=== PATIENT | female | born 1965 ===

== ENCOUNTER 2017-10-20 15:46 | Inpatient (IN) | payer OTHER ==
[2017-10-20] MEDS ORDERED: Sodium Chloride 0.9% 1,000 ML IV ONE (17:07)
[2017-10-20 18:23] LABS: BASO % 0.4 % (0.0-2.0); EOS % 0.3 % (0.0-4.0); HEMOGLOBIN 13.6 g/dL (11.0-16.0); LYMPH % 19.9 % (20.0-40.0); MEAN CELL VOLUME 80.4 fL (81.0-99.0); MEAN CORPUSCULAR HEMOGLOBIN 26.5 pg (27.0-31.0); MEAN CORPUSCULAR HGB CONC 32.9 g/dL (33.0-37.0); MEAN PLATELET VOLUME 8.8 fL (7.2-11.7); MONO % 18.9 % (0.0-10.0); NEUT # 3.1 K/uL (1.8-7.0); NEUT % 60.5 % (50.0-75.0); NRBC % 0.1 % (0.0-2.0); RBC 5.13 Mil/uL (3.80-5.20); RED CELL DISTRIBUTION WIDTH 13.6 % (11.5-14.5); WHITE BLOOD COUNT 5.2 K/uL (4.8-10.8)
[2017-10-20 18:33] LABS: D DIMER < 200 ng/mlDDU (0-243); INR 2.7; PARTIAL THROMBOPLASTIN TIME 45 SECONDS (21-34); PROTHROMBIN TIME 31.7 SECONDS (9.7-12.2)
[2017-10-20 18:40] LABS: ALB/GLOB RATIO 1.2 (1.0-2.1); ALBUMIN 3.9 g/dL (3.5-5.0); ALT/SGPT 35 U/L (9-52); AST/SGOT 32 U/L (14-36); BLOOD UREA NITROGEN 7 mg/dL (7-17); CALCIUM 8.7 mg/dl (8.6-10.4); GFR AFRICAN-AMERICAN > 60; GFR NON-AFRICAN AMERICAN > 60
--- NOTE | 2017-10-20 18:49 | C.PDOC ---
History Of Present Illness Patient sent by Dr. Motnano for admission, patient presents with sore throat, malaise, and congestion. Patient has had positive sick contacts and has a Hx of HIV; patient has a low CD4 count which is "normal" for her as per Dr. Montano. Denies chest pain, SOB, nausea, or vomiting. Time Seen by Provider: 10/20/17 16:49 Chief Complaint (Nursing): Lower Extremity Problem/Injury History Per: Patient History/Exam Limitations: no limitations Onset/Duration Of Symptoms: Hrs Current Symptoms Are (Timing): Still Present Recent travel outside of the [place]: No Past Medical History Reviewed: Historical Data, Nursing Documentation, Vital Signs Vital Signs: Last Vital Signs Temp 99.7 F H 10/20/17 20:16 Pulse 82 10/20/17 20:16 Resp 18 10/20/17 20:16 BP 104/65 10/20/17 20:16 Pulse Ox 99 10/20/17 20:16 - Medical History PMH: HIV Family History: States: Unknown Family Hx - Social History Hx Alcohol Use: No Hx Substance Use: No - Immunization History Hx Tetanus Toxoid Vaccination: No Hx Influenza Vaccination: Yes Hx Pneumococcal Vaccination: Yes Review Of Systems Constitutional: Positive for: Malaise. Negative for: Fever, Chills ENT: Positive for: Nose Congestion, Throat Pain Cardiovascular: Negative for: Chest Pain Respiratory: Negative for: Shortness of Breath Gastrointestinal: Negative for: Nausea, Vomiting, Abdominal Pain Physical Exam - Physical Exam Appears: Non-toxic, No Acute Distress Skin: Normal Color, Warm, Dry Head: Atraumatic, Normacephalic Eye(s): bilateral: Normal Inspection Ear(s): Bilateral: Normal Nose: Normal Oral Mucosa: Moist Throat: Normal, No Erythema, No Exudate Neck: Normal, Supple Chest: Symmetrical Cardiovascular: Rhythm Regular Respiratory: Normal Breath Sounds, No Rales, No Rhonchi, No Wheezing Gastrointestinal/Abdominal: Soft, No Tenderness Neurological/Psych: Oriented x3, Normal Speech ED Course And Treatment - Laboratory Results Result Diagrams: 10/20/17 18:18 10/20/17 18:18 Lab Interpretation: Normal (d-dimer neg, INR 2.7 is THERAPUTIC on her Coumadin) ECG: Interpreted By Me ECG Rhythm: Sinus Rhythm ECG Interpretation: Normal Rate From EC O2 Sat by Pulse Oximetry: 97 - Radiology CXR: Interpreted by Me CXR Interpretation: Yes: No Acute Disease Progress Note: ice pack to L piriformis area for L sciatica, toradol IV. Flu swab was positive, started on tamiflu Reevaluation Time: 19:05 Reassessment Condition: Improved - Physician Consult Information Outcome Of Conversation: 1899: d/w Dr. Montano, findings reviewed. Asks pt admitted to Dr. Martinez and Dr Montano will Consult. 1914: d/w Dr. Martinez , ok to admit. Medical Decision Making Medical Decision Making: teraputic INR 2.7 on Coumadin for h/o PE with unknown DVT. legs normal appearance, L piriformis Syndrome worse with heat therapies, no spinal pains. d-dimer neg. LOW susp of recurrent PE No heparin given as INR 2.7 is theraputic. Viral syndrome Flu neg. adm per Dr. Montano who will eval in AM Disposition Doctor Will See Patient In The: Hospital Counseled Patient/Family Regarding: Studies Performed, Diagnosis - Disposition Disposition: HOSPITALIZED Disposition Time: 18:49 Condition: GOOD - Clinical Impression Clinical Impression: Sciatica of left side, Viral syndrome - Scribe Statement The provider has reviewed the documentation as recorded by the Scribe Amish Galvan All medical record entries made by the Scribe were at my direction and personally dictated by me. I have reviewed the chart and agree that the record accurately reflects my personal performance of the history, physical exam, medical decision making, and the department course for this patient. I have also personally directed, reviewed, and agree with the discharge instructions and disposition.
[2017-10-20] MEDS ORDERED: guaiFENesin 100 mg/5 ml Syrup UD PO STA (18:51)
[2017-10-20] MEDS ORDERED: guaiFENesin DM 200 mg-20 mg/10 ml UD ONE (19:35)
[2017-10-20] MEDS: Multivitamin (MVI) 10 ML in Dextrose 5%/0.45% NS 1,000 ML IV SCH (20:50)
--- NOTE | 2017-10-20 20:55 | CP.PCM.CON ---
History of Present Illness - History of Present Illness History of Present Illness: INFECTIOUS DISEASE CONSULTATION SRINATH FLOYD MD, FACP 10/20/2017 CHART REVIEWED PT EXAMINED CASE DISCUSSED 52 YR OLD FEMALE PRESENTS WITH ELEVATED TEMPERATURES 101.7, COUGH, CHILLS, DEBILITATION AND UNBEARABLE PAIN LEFT LEG PAIN X DAYS. PT UNABLE TO TAKE CARE OF HERSELF, POOR ORAL INTAKE AND POOR AMBULATION. PMHX: HIV/AIDS; CD4 708(38%0, VL UNDECTABLE ON GENVOYA DVT/PE INR 2.9 BILATERAL LEG NEUROPATHY - PLEASE NO DECADRON DYSMORPHIA/LIPODYSTROPHY PROGRESSIVE, FAILED EGRIFTA X 1 YEAR, CIRCA [id number] PULMONARY HTN VS ELEVATED TEMP 101.7 DEBILITATED, DEHYDRATED CLINICALLY, UNABLE TO CARE FOR HERSELF DRY MOUTH SUPPLE NECK CHEST DECREASED BREATH SOUNDS COR NOTED ABD SOFT BACK PAIN WITH SEVERE LEFT LOWER LEG PAIN NEURO ABOVE LABS PENDING CXR IV FLUIDS TAMIFLU ROCEPHIN SOLUMEDROL 40MG IVPB Q 12 X 2 DOSES R/O ACUTE FLU R/O BRONCHOPNEUMONIA PE ON TREATMENT DEBILITATION LEFT LOWER LEG PAIN, CANT WALK WELL SEE NOTES DISCUSSED WITH ER GROUP, DR TOLEDO PT AWARE, FAMILY AWARE MUCH APPRECIATE 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 IN EXPEDIATING HER CARE AND TREATMENT, Review of Systems - Review of Systems Systems not reviewed;Unavailable: Respiratory Distress - Constitutional Constitutional: Anorexia, Chills, Fatigue, Fever, Malaise - EENT Eyes: As Per HPI Ears: As Per HPI Nose/Mouth/Throat: Sinus Pressure, Dry Mouth - Cardiovascular Cardiovascular: Diaphoresis, Edema - Respiratory Respiratory: Cough, Dyspnea on Exertion, Chest Congestion - Gastrointestinal Gastrointestinal: Bloating, Cramping - Musculoskeletal Musculoskeletal: Atrophy, Back Pain, Joint Swelling, Muscle Weakness, Numbness, Radiating Pain into Limb - Integumentary Integumentary: absent: As Per HPI, Acne, Alopecia, Bleeding Lesions, Change in Hair, Change in Nails, Change in Pigmentation, Changing Lesions, Dry Skin, Erythema, Furuncle, Hirsutism, Lesions, New Lesions, Non-Healing Lesions, Photosensitivity, Pruritus, Rash, Skin Pain, Skin Ulcer, Sores, Striae, Swelling , Unusual Bruising, Wounds, Jaundice, Other - Neurological Neurological: Numbness, Lack of Coordination, Radicular Pain, Weakness - Psychiatric Psychiatric: absent: As Per HPI, Abnormal Sleep Pattern, Anhedonia, Anxiety, Auditory Hallucinations, Behavioral Changes, Change in Appetite, Change in Libido, Confusion, Depression, Difficulty Concentrating, Hallucinations, Homicidal Ideation, Hopelessness, Irritability, Memory Loss, Mood Swings, Panic Attacks, Paranoia, Suicidal Ideation, Visual Hallucinations, Tactile Hallucinations, Other Past Patient History - Tetanus Immunizations Tetanus Immunization: Up to Date - Past Medical History & Family History Past Medical History?: Yes - Past Social History Smoking Status: Never Smoked Chewing Tobacco Use: No Cigar Use: No Alcohol: Occasional Drugs: Denies Home Situation {Lives}: With Family Domestic Violence: Negative - CARDIAC Hx Cardiac Disorders: Yes Hx Hypertension: Yes - PULMONARY Hx Respiratory Disorders: Yes Hx Respiratory Tract Infection: Yes Other/Comment: PULMONARY HTN - NEUROLOGICAL Hx Neurological Disorder: Yes (BACK PAIN) - HEENT Hx HEENT Problems: No - RENAL Hx Chronic Kidney Disease: No - ENDOCRINE/METABOLIC Hx Endocrine Disorders: No - HEMATOLOGICAL/ONCOLOGICAL Hx Blood Disorders: Yes Hx AIDS: Yes Hx Human Immunodeficiency Virus (HIV): Yes Other/Comment: PULMONARY EMBOLI - INTEGUMENTARY Hx Dermatological Problems: No - MUSCULOSKELETAL/RHEUMATOLOGICAL Hx Arthritis: Yes Hx Herniated Disk: Yes - GASTROINTESTINAL Hx Gastrointestinal Disorders: Yes - PSYCHIATRIC Hx Psychophysiologic Disorder: No Hx Substance Use: No - SURGICAL HISTORY Other/Comment: ovarian cyst removed - ANESTHESIA Hx Anesthesia: No Hx Anesthesia Reactions: No Meds Allergies/Adverse Reactions: Allergies Allergy/AdvReac Type Severity Reaction Status Date / Time No Known Allergies Allergy Unverified 10/20/17 15:54 - Medications Medications: Current Medications Home Med (Elviteg/Cob/Emtri/Tenof Alafen [Genvoya Tablet]) 1 tab PO DAILY [facility] Multivitamins/Vitamin C 10 ml/ (Dextrose/Sodium Chloride) 1,010 mls @ 125 mls/ hr IV .Q8H5M [facility] Ceftriaxone Sodium 1 gm/ (Sodium Chloride) 100 mls @ 100 mls/hr IVPB DAILY [facility] Oseltamivir Phosphate (Tamiflu Cap) 75 mg PO BID [facility] Stop: 10/25/17 19:33 Warfarin Sodium (Coumadin) 6 mg PO 1800 [facility] Stop: 10/21/17 18:01 Warfarin Sodium (Coumadin) 6 mg PO HS [facility] Last Admin: 10/20/17 19:52 Dose: Not Given Physical Exam - Constitutional Appears: In Acute Distress - Head Exam Head Exam: NORMAL INSPECTION - Eye Exam Eye Exam: Normal appearance - ENT Exam ENT Exam: Mucous Membranes Dry - Neck Exam Neck exam: Positive for: Normal Inspection - Respiratory Exam Respiratory Exam: Decreased Breath Sounds, Wheezes - Cardiovascular Exam Cardiovascular Exam: Tachycardia - GI/Abdominal Exam GI & Abdominal Exam: Normal Bowel Sounds, Soft. absent: Rigid - Rectal Exam Rectal Exam: Deferred - Back Exam Back exam: muscle spasm, tenderness. absent: rash noted - Neurological Exam Neurological exam: Alert, Oriented x3 - Psychiatric Exam Psychiatric exam: Anxious - Skin Skin Exam: Dry, Intact, Normal Color, Warm Results - Vital Signs Recent Vital Signs: Last Vital Signs Temp 99.7 F H 10/20/17 20:16 Pulse 82 10/20/17 20:16 Resp 18 10/20/17 20:16 BP 104/65 10/20/17 20:16 Pulse Ox 99 10/20/17 20:16 - Labs Result Diagrams: 10/20/17 18:18 10/20/17 18:18 Labs: Laboratory Results - last 24 hr 10/20/17 10/20/17 10/20/17 18:18 18:18 18:18 WBC 5.2 RBC 5.13 Hgb 13.6 Hct 41.3 MCV 80.4 L MCH 26.5 L MCHC 32.9 L RDW 13.6 Plt Count 207 MPV 8.8 Neut % (Auto) 60.5 Lymph % (Auto) 19.9 L [place] % (Auto) 18.9 H Eos % (Auto) 0.3 Baso % (Auto) 0.4 Neut # 3.1 Lymph # 1.0 [place] # 1.0 H Eos # 0.0 Baso # 0.0 PT 31.7 H* INR 2.7 APTT 45 H D-Dimer, Quantitative < 200 Sodium 131 L Potassium 3.7 Chloride 98 Carbon Dioxide 25 Anion Gap 12 BUN 7 Creatinine 0.7 Est GFR ( Amer) > 60 Est GFR (Non-Af Amer) > 60 Random Glucose 102 Calcium 8.7 Total Bilirubin 0.3 AST 32 ALT 35 Alkaline Phosphatase 80 Troponin I < 0.0120 Total Protein 7.2 Albumin 3.9 Globulin 3.3 Albumin/Globulin Ratio 1.2 Influenza Typ A,B (EIA) 10/20/17 19:13 WBC RBC Hgb Hct MCV MCH MCHC RDW Plt Count MPV Neut % (Auto) Lymph % (Auto) [place] % (Auto) Eos % (Auto) Baso % (Auto) Neut # Lymph # [place] # Eos # Baso # PT INR APTT D-Dimer, Quantitative Sodium Potassium Chloride Carbon Dioxide Anion Gap BUN Creatinine Est GFR ( Amer) Est GFR (Non-Af Amer) Random Glucose Calcium Total Bilirubin AST ALT Alkaline Phosphatase Troponin I Total Protein Albumin Globulin Albumin/Globulin Ratio Influenza Typ A,B (EIA) Pos for influenza a H Assessment & Plan (1) Acute pharyngitis with influenza Status: Acute (2) Bronchopneumonia Status: Suspected (3) Fever and chills Status: Acute (4) Pulmonary emboli Status: Chronic (5) HIV (human immunodeficiency virus infection) Status: Chronic (6) Neuropathy Status: Chronic Priority: High Comment: LEFT LEG PAIN AND WEAKNESS (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
[2017-10-20 21:15] LABS: SQUAMOUS EPITHIAL 1 /hpf (0-5); URINE BACTERIA RARE (<OCC); URINE BILIRUBIN NEGATIVE (NEGATIVE); URINE BLOOD NEGATIVE (NEGATIVE); URINE CLARITY Clear (Clear); URINE COLOR Yellow (YELLOW); URINE GLUCOSE (UA) NORMAL (Normal); URINE LEUKOCYTE ESTERASE NEG Leu/uL (Negative); URINE NITRATE NEGATIVE (NEGATIVE); URINE PROTEIN NEGATIVE (NEGATIVE); URINE UROBILINOGEN NORMAL mg/dL (0.2-1.0)
[2017-10-20] MEDS ORDERED: Iodixanol 320 MG/ML 100 ML BOTTLE IV ONE (21:46)
[2017-10-20] MEDS ORDERED: MethylPREDNISolone 40 mg Vial ONE (22:24)
[2017-10-20] MEDS: MethylPREDNISolone 40 mg Vial IV SCH (22:26)
--- NOTE | 2017-10-20 23:43 | CT ---
EXAM: CT Angiography Chest With Intravenous Contrast EXAM DATE/TIME: 10/20/2017 9:15 PM CLINICAL HISTORY: 52 years old, female; Signs and symptoms; Shortness of breath; Patient HX: H/o pe; Additional info: R/O pulm emboli TECHNIQUE: Axial computed tomographic angiography images of the chest with intravenous contrast using pulmonary embolism protocol. All CT scans at this facility use one or more dose reduction techniques, viz.: automated exposure control; ma/kV adjustment per patient size (including targeted exams where dose is matched to indication; i.e. head); or iterative reconstruction technique. MIP reconstructed images were created and reviewed. Coronal and sagittal reformatted images were created and reviewed. CONTRAST: 100 mL of visipaque 320 administered intravenously. COMPARISON: There are no prior studies for comparison. FINDINGS: Heart, aorta and Pulmonary arteries: Heart size is normal.There is fluid in pericardial recesses.There is no aneurysm or dissection. There is perfusion of the 3 arch vessels. Vascular calcificationThere are no pulmonary emboli. Lungs and pleural spaces: Trachea and main bronchi are patent.There is no pneumothorax. There is atelectasis and scarring in the lingula and right middle lobe. There is dependent atelectasis at the lung bases. There is minimal scarring at the lung bases. There is a 2.8 mm right lower lobe nodule. There is no focal consolidation. There are no effusions. Thyroid: Thyroid is only partially imaged. Bones/joints: There are degenerative changes in the osseus structures. Soft tissues: unremarkable Mediastinum:: There is mediastinal and hilar adenopathy. There are enlarged nodes in the anterior and middle mediastinum. There is subcarinal adenopathy. There is a 1.9 x 1 7 precarinal node, image 45 series 3. There is a 1.8 x 1.4 cm subcarinal node, image 56 series 3 Upper abdomen: There are no acute abnormalities in the visualized portion of the abdomen. IMPRESSION: No aneurysm, dissection or pulmonary embolus; mediastinal and hilar adenopathy, infectious/inflammatory versus neoplastic; indeterminate 2.8 mm right lower lobe nodule For low-risk patients, no follow-up is necessary. For high-risk patients (smoking history or other known risk factors) an optional chest CT at 12 months could be performed.
[2017-10-20] MEDS ORDERED: Tramadol 25 mg PO STA (23:54)
[2017-10-21] MEDS ORDERED: Tramadol 25 mg PO ONE (04:00)
[2017-10-21] MEDS: Multivitamin (MVI) 10 ML in Dextrose 5%/0.45% NS 1,000 ML IV SCH (04:31)
--- NOTE | 2017-10-21 08:52 | RAD ---
HISTORY: SOB COMPARISON: No prior. TECHNIQUE: Chest PA and lateral FINDINGS: LUNGS: No active pulmonary disease. PLEURA: No significant pleural effusion identified. No pneumothorax apparent. CARDIOVASCULAR: Normal. OSSEOUS STRUCTURES: No significant abnormalities. VISUALIZED UPPER ABDOMEN: Normal. OTHER FINDINGS: None. IMPRESSION: No active disease.
[2017-10-21] MEDS: MethylPREDNISolone 40 mg Vial IV SCH ×2 (10:30→21:31)
[2017-10-21] MEDS ORDERED: Oxycodone/Acetaminophen 5/325 mg Tab PO PRN (11:16)
--- NOTE | 2017-10-21 13:56 | VASCLAB ---
PROCEDURE: Lower Extremity Venous Duplex Exam. HISTORY: pain lower ext PRIORS: None. TECHNIQUE: Bilateral common femoral, femoral, popliteal and posterior tibial, peroneal and great saphenous veins were evaluated. Flow was assessed with color Doppler, compressibility, assessment of phasic flow and augmentation response. Report prepared by Amish Camejo, RONALD, RVT FINDINGS: RIGHT: 1. Common Femoral Vein: 1.1. Compressibility - Fully compressible: Thrombus - None : Flow - Phasic: Augmentation -Normal: Reflux - None. 2. Femoral Vein: 2.1. Compressibility - Fully compressible: Thrombus - None : Flow - Phasic: Augmentation -Normal: Reflux - None. 3. Popliteal Vein: 3.1. Compressibility - Fully compressible: Thrombus - None : Flow - Phasic: Augmentation -Normal: Reflux - None. 4. Posterior Tibial Vein: 4.1. Compressibility - Fully compressible: Thrombus - None: Flow - Phasic: Augmentation -Normal: Reflux - None. 5. Peroneal Vein: 5.1. Compressibility - Fully compressible: Thrombus - None: Flow - Phasic: Augmentation -Normal: Reflux - None. 6. Great Saphenous Vein: 6.1. Compressibility - Fully compressible: Thrombus - None: Flow - Phasic: Augmentation - Normal: Reflux - None. LEFT: 1. Common Femoral Vein: 1.1. Compressibility - Fully compressible: Thrombus - None: Flow - Phasic: Augmentation -Normal: Reflux - None. 2. Femoral Vein: 2.1. Compressibility - Fully compressible: Thrombus - None: Flow - Phasic: Augmentation -Normal: Reflux - None. 3. Popliteal Vein: 3.1. Compressibility - Fully compressible: Thrombus - None : Flow - Phasic: Augmentation -Normal: Reflux - None. 4. Posterior Tibial Vein: 4.1. Compressibility - Fully compressible: Thrombus - None: Flow - Phasic: Augmentation -Normal: Reflux - None. 5. Peroneal Vein: 5.1. Compressibility - Fully compressible: Thrombus - None: Flow - Phasic: Augmentation -Normal: Reflux - None. 6. Great Saphenous Vein: 6.1. Compressibility - Fully compressible: Thrombus - None: Flow - Phasic: Augmentation - Normal: Reflux - None. OTHER FINDINGS: Right: None significant. Left: None significant. IMPRESSION: Right: No evidence of deep or superficial vein thrombosis of the right lower extremity. Normal valve function noted of the right side. Left: No evidence of deep or superficial vein thrombosis of the left lower extremity. Normal valve function noted of the left side.
--- NOTE | 2017-10-21 16:29 | CARD ---
APPROVED REPORT EKG Measurement Heart [id number] <Conclusion> Normal sinus rhythm Normal ECG
[2017-10-21] MEDS ORDERED: GENVOYA PO SCH ×2 (18:00→19:45)
--- NOTE | 2017-10-21 18:17 | CP.PCM.CON ---
History of Present Illness - History of Present Illness History of Present Illness: 52 yo woman known to me from the office, [place] [facility] [place] she presented with SOB and was found to have an acute subsegmental PE and was started on Coumadin. The patient is now admitted with fever, generalized weakness, myalgias, testing for lower extremity DVT is negative, testing for influenza A is positive. As per medical records the patient received flu vaccine in 06/2017. Past Patient History - Tetanus Immunizations Tetanus Immunization: Up to Date - Past Medical History & Family History Past Medical History?: Yes - Past Social History Smoking Status: Never Smoked - CARDIAC Hx Cardiac Disorders: Yes Hx Hypertension: Yes - PULMONARY Hx Respiratory Disorders: Yes Hx Respiratory Tract Infection: Yes Other/Comment: PULMONARY HTN - NEUROLOGICAL Hx Neurological Disorder: Yes (BACK PAIN) - HEENT Hx HEENT Problems: No - RENAL Hx Chronic Kidney Disease: No - ENDOCRINE/METABOLIC Hx Endocrine Disorders: No - HEMATOLOGICAL/ONCOLOGICAL Hx Human Immunodeficiency Virus (HIV): Yes - INTEGUMENTARY Hx Dermatological Problems: No - MUSCULOSKELETAL/RHEUMATOLOGICAL Hx Musculoskeletal Disorders: Yes Hx Arthritis: Yes Hx Falls: No Hx Herniated Disk: Yes - GASTROINTESTINAL Hx Gastrointestinal Disorders: Yes - GENITOURINARY/GYNECOLOGICAL Hx Genitourinary Disorders: No - PSYCHIATRIC Hx Substance Use: No - SURGICAL HISTORY Hx Surgeries: Yes Other/Comment: ovarian cyst removed - ANESTHESIA Hx Anesthesia: Yes Hx Anesthesia Reactions: No Meds Allergies/Adverse Reactions: Allergies Allergy/AdvReac Type Severity Reaction Status Date / Time No Known Allergies Allergy Unverified 10/20/17 15:54 - Medications Medications: Current Medications Home Med (Patient's Own Medication) 1 tab PO DAILY [facility] Ceftriaxone Sodium 1 gm/ (Sodium Chloride) 100 mls @ 100 mls/hr IVPB DAILY [facility] Last Admin: 10/21/17 10:31 Dose: 100 mls/hr Multivitamins/Vitamin C 10 ml/ (Dextrose/Sodium Chloride) 1,010 mls @ 125 mls/ hr IV DAILY [facility] Methylprednisolone (Solu-Medrol) 40 mg IV Q12 [facility] Stop: 10/21/17 22:00 Last Admin: 10/21/17 10:30 Dose: 40 mg Oseltamivir Phosphate (Tamiflu Cap) 75 mg PO BID [facility] Stop: 10/25/17 21:46 Last Admin: 10/21/17 10:31 Dose: 75 mg Oxycodone/Acetaminophen (Percocet 5/325 Mg Tab) 1 tab PO Q6H PRN PRN Reason: Back Pain Stop: 10/24/17 11:17 Last Admin: 10/21/17 11:37 Dose: 1 tab Warfarin Sodium (Coumadin) 5 mg PO 1800 [facility] Stop: 10/21/17 18:01 Results - Vital Signs Recent Vital Signs: Last Vital Signs Temp 97.7 F 10/21/17 16:27 Pulse 63 10/21/17 16:27 Resp 20 10/21/17 16:27 BP 105/68 10/21/17 16:27 Pulse Ox 98 10/21/17 16:27 - Labs Result Diagrams: 10/20/17 18:18 10/20/17 18:18 Labs: Laboratory Results - last 24 hr 10/20/17 10/20/17 10/20/17 18:18 18:18 18:18 WBC 5.2 RBC 5.13 Hgb 13.6 Hct 41.3 MCV 80.4 L MCH 26.5 L MCHC 32.9 L RDW 13.6 Plt Count 207 MPV 8.8 Neut % (Auto) 60.5 Lymph % (Auto) 19.9 L [place] % (Auto) 18.9 H Eos % (Auto) 0.3 Baso % (Auto) 0.4 Neut # 3.1 Lymph # 1.0 [place] # 1.0 H Eos # 0.0 Baso # 0.0 PT 31.7 H* INR 2.7 APTT 45 H D-Dimer, Quantitative < 200 Sodium 131 L Potassium 3.7 Chloride 98 Carbon Dioxide 25 Anion Gap 12 BUN 7 Creatinine 0.7 Est GFR ( Amer) > 60 Est GFR (Non-Af Amer) > 60 Random Glucose 102 Calcium 8.7 Total Bilirubin 0.3 AST 32 ALT 35 Alkaline Phosphatase 80 Troponin I < 0.0120 Total Protein 7.2 Albumin 3.9 Globulin 3.3 Albumin/Globulin Ratio 1.2 Urine Color Urine Clarity Urine pH Ur Specific [place] Urine Protein Urine Glucose (UA) Urine Ketones Urine Blood Urine Nitrate Urine Bilirubin Urine Urobilinogen Ur Leukocyte Esterase Urine WBC (Auto) Urine RBC (Auto) Ur Squamous Epith Cells Urine Bacteria Influenza Typ A,B (EIA) 10/20/17 10/20/17 19:13 21:03 WBC RBC Hgb Hct MCV MCH MCHC RDW Plt Count MPV Neut % (Auto) Lymph % (Auto) [place] % (Auto) Eos % (Auto) Baso % (Auto) Neut # Lymph # [place] # Eos # Baso # PT INR APTT D-Dimer, Quantitative Sodium Potassium Chloride Carbon Dioxide Anion Gap BUN Creatinine Est GFR ( Amer) Est GFR (Non-Af Amer) Random Glucose Calcium Total Bilirubin AST ALT Alkaline Phosphatase Troponin I Total Protein Albumin Globulin Albumin/Globulin Ratio Urine Color Yellow Urine Clarity Clear Urine pH 6.0 Ur Specific [place] 1.011 Urine Protein Negative Urine Glucose (UA) Normal Urine Ketones Trace Urine Blood Negative Urine Nitrate Negative Urine Bilirubin Negative Urine Urobilinogen Normal Ur Leukocyte Esterase Neg Urine WBC (Auto) < 1 Urine RBC (Auto) 3 Ur Squamous Epith Cells 1 Urine Bacteria Rare Influenza Typ A,B (EIA) Pos for influenza a H Assessment & Plan (1) Pulmonary emboli Assessment and Plan: 52 yo woman with history of pulmonary embolism, work up then did not reveal any risk factor on hypercoagulable work up, CAT scan chest now showing enlarged nodes, ?reactive/inflammatory versus malignant Will order scan of abdomen and pelvis, LDH. If above normal, will get PET scan after resolution of "viral " symptoms, as outpatient Status: Chronic
[2017-10-21 20:18] LABS: INR 2.6
[2017-10-21 21:06] LABS: PROTHROMBIN TIME 30.4 SECONDS (9.7-12.2)
[2017-10-21] MEDS ORDERED: Aluminum Hydroxide/Magnesium Hydroxide Susp (30 mL) PO ONE (22:42)
--- NOTE | 2017-10-21 23:48 | CP.PCM.HP ---
History of Present Illness - History of Present Illness History of Present Illness: Chief complaint: Cough and body pain History of present illness: 52-year-old female with a history of HIV, AIDS, normal CD4 count, history of recent DVT, pulmonary embolism, on Coumadin. Also patient has a bilateral neuropathy and lipodystrophy. Patient is being followed up by a infectious disease specialist for HIV. Patient came to the emergency room with a high fever, cough, chills, and also progressively worsening pain. She was also having increasing pain over the left leg, and also in the lower back, especially on the left side, unable to move, social to some weakness. She was also complaining of headache, muscle pain. Nausea noted, but no vomiting. Denies any diarrhea. No skin rash noted. Past medical history: HIV, back pain, probably embolism, history of DVT. 3 months ago while she was trying to help her mother, and they're trying to lift her up, she felt suddenly pain over the left hip, and also in the left thigh region, since then she was not able to walk better, and worsening pain noted. She was seen by orthopedic surgeon, and also had injection Decadron, and following that she had a complication with allergic reaction. Patient has a significant allergic to certain medications including Decadron. Past surgical history: Nonsmoker nonalcoholic But has a history of pulmonary hypertension. Review of system: Currently mild headache noted. Cough and wheezing noted, mucus percussion percent, body pain present, but today is better than yesterday. No vomiting nausea. The leg pain is still persistently noted. On examination: Vital signs are stable, elevated temperature. Irregular heart sound, minimal expiratory wheezing, regular heart sound, abdomen soft, nontender, extremities no pedal edema. Left leg the patient has some weakness in the extensors of the left foot, and also straight leg raising test is positive. Labs reviewed Influenza is positive. Chest x-ray nonspecific. Patient seen by infectious diseases, medication ordered including Tamiflu. Assessment and recommendation: 52-year-old female with a history of pulmonary hypertension, HIV, DVT primary embolism, on Coumadin. On antiretroviral treatment. Normal CD4 count. Patient admitted with acute febrile illness, likely influenza, and associated dehydration. Patient is currently receiving IV fluid, Tamiflu, antibiotic. Follow-up the study for the DVT on the left leg. CT scan of the chest is being ordered. DVT prophylaxis. Will follow the patient. Present on Admission - Present on Admission Any Indicators Present on Admission: No History of DVT/PE: No History of Uncontrolled Diabetes: No Urinary Catheter: No Decubitus Ulcer Present: No Past Patient History - Tetanus Immunizations Tetanus Immunization: Up to Date - Past Medical History & Family History Past Medical History?: Yes - Past Social History Smoking Status: Never Smoked - CARDIAC Hx Cardiac Disorders: Yes Hx Hypertension: Yes - PULMONARY Hx Respiratory Disorders: Yes Hx Respiratory Tract Infection: Yes Other/Comment: PULMONARY HTN - NEUROLOGICAL Hx Neurological Disorder: Yes (BACK PAIN) - HEENT Hx HEENT Problems: No - RENAL Hx Chronic Kidney Disease: No - ENDOCRINE/METABOLIC Hx Endocrine Disorders: No - HEMATOLOGICAL/ONCOLOGICAL Hx Human Immunodeficiency Virus (HIV): Yes - INTEGUMENTARY Hx Dermatological Problems: No - MUSCULOSKELETAL/RHEUMATOLOGICAL Hx Arthritis: Yes - GASTROINTESTINAL Hx Gastrointestinal Disorders: Yes - GENITOURINARY/GYNECOLOGICAL Hx Genitourinary Disorders: No - PSYCHIATRIC Hx Substance Use: No - SURGICAL HISTORY Hx Surgeries: Yes Other/Comment: ovarian cyst removed - ANESTHESIA Hx Anesthesia: Yes Hx Anesthesia Reactions: No Meds Allergies/Adverse Reactions: Allergies Allergy/AdvReac Type Severity Reaction Status Date / Time No Known Allergies Allergy Unverified 10/20/17 15:54 Results - Vital Signs Recent Vital Signs: Last Vital Signs Temp 97.7 F 10/21/17 16:27 Pulse 63 10/21/17 16:27 Resp 20 10/21/17 16:27 BP 105/68 10/21/17 16:27 Pulse Ox 98 10/21/17 16:27 - Labs Result Diagrams: 10/20/17 18:18 10/20/17 18:18 Labs: Laboratory Results - last 24 hr 10/21/17 20:01 PT 30.4 H* INR 2.6
--- NOTE | 2017-10-22 00:08 | CP.PCM.PN ---
Subjective - Date & Time of Evaluation Date of Evaluation: 10/21/17 Time of Evaluation: 22:50 - Subjective Subjective: After taking Percocet the patient had an episode of vomiting, and the stomach burning. Maalox was given. Cough minimally noted. The left leg pain is improving. Patient denies any chest pain, no diarrhea She is feeling slightly better Vital signs stable. Chest good air entry regular hs CT of the chest was done today showing evidence of no acute pulmonary embolism. borderline subcarinal, and precarinal lymph node noted and most likely with the current clinical situation inflammatory in origin. Left lower lung nodule noted small. Nonspecific. DVT study is negative. Assessment recognition: 52-year-old female admitted with acute influenza. Mild pulmonary nodule, nonspecific. Mediastinal lymphadenopathy, nonspecific. Patient had a CT of the chest was done in [facility], will look into that, comparing these 2 studies probably will give more Information. In my opinion after the acute inflammation subsides, we'll repeat the The CT of the chest with contrast. Objective - Vital Signs/Intake and Output Vital Signs (last 24 hours): Temp Pulse Resp BP Pulse Ox 97.7 F 63 20 105/68 98 10/21/17 16:27 10/21/17 16:27 10/21/17 16:27 10/21/17 16:27 10/21/17 16:27 Intake and Output: 10/21/17 10/22/17 18:59 06:59 Intake Total 700 Balance 700 - Medications Medications: Current Medications Famotidine (Pepcid) 20 mg PO DAILY [facility] Home Med (Patient's Own Medication) 1 tab PO Q24H [facility] Ceftriaxone Sodium 1 gm/ (Sodium Chloride) 100 mls @ 100 mls/hr IVPB DAILY [facility] Last Admin: 10/21/17 10:31 Dose: 100 mls/hr Multivitamins/Vitamin C 10 ml/ (Dextrose/Sodium Chloride) 1,010 mls @ 125 mls/ hr IV DAILY [facility] Oseltamivir Phosphate (Tamiflu Cap) 75 mg PO BID [facility] Stop: 10/25/17 21:46 Last Admin: 10/21/17 18:33 Dose: 75 mg Oxycodone/Acetaminophen (Percocet 5/325 Mg Tab) 1 tab PO Q6H PRN PRN Reason: Back Pain Stop: 10/24/17 11:17 Last Admin: 10/21/17 11:37 Dose: 1 tab - Labs Labs: 10/20/17 18:18 10/20/17 18:18 PT 30.4 SECONDS (9.7-12.2) H* 10/21/17 20:01 INR 2.6 10/21/17 20:01 APTT 45 SECONDS (21-34) H 10/20/17 18:18
--- NOTE | 2017-10-22 07:04 | CP.PCM.CON ---
History of Present Illness - History of Present Illness History of Present Illness: CHART REVIEWED AND CONSULT DICTATED LEFT S1 RADICULOPATHY Vs LOWER LUMBOSACRAL PLEXITIS INFECTTIOUS /INFLAMATORY/STRUCTURAL PATHOLOGY Rx GBP 300 MG BID MRI L/S SPINE WITH AN WITHOUT BOBBI Past Patient History - Tetanus Immunizations Tetanus Immunization: Up to Date - Past Medical History & Family History Past Medical History?: Yes - Past Social History Smoking Status: Never Smoked - CARDIAC Hx Cardiac Disorders: Yes Hx Hypertension: Yes - PULMONARY Hx Respiratory Disorders: Yes Hx Respiratory Tract Infection: Yes Other/Comment: PULMONARY HTN - NEUROLOGICAL Hx Neurological Disorder: Yes (BACK PAIN) - HEENT Hx HEENT Problems: No - RENAL Hx Chronic Kidney Disease: No - ENDOCRINE/METABOLIC Hx Endocrine Disorders: No - HEMATOLOGICAL/ONCOLOGICAL Hx Human Immunodeficiency Virus (HIV): Yes - INTEGUMENTARY Hx Dermatological Problems: No - MUSCULOSKELETAL/RHEUMATOLOGICAL Hx Arthritis: Yes - GASTROINTESTINAL Hx Gastrointestinal Disorders: Yes - GENITOURINARY/GYNECOLOGICAL Hx Genitourinary Disorders: No - PSYCHIATRIC Hx Substance Use: No - SURGICAL HISTORY Hx Surgeries: Yes Other/Comment: ovarian cyst removed - ANESTHESIA Hx Anesthesia: Yes Hx Anesthesia Reactions: No Meds Allergies/Adverse Reactions: Allergies Allergy/AdvReac Type Severity Reaction Status Date / Time No Known Allergies Allergy Unverified 10/20/17 15:54 - Medications Medications: Current Medications Famotidine (Pepcid) 20 mg PO DAILY [facility] Gabapentin (Neurontin) 300 mg PO BID [facility] Home Med (Patient's Own Medication) 1 tab PO Q24H [facility] Ceftriaxone Sodium 1 gm/ (Sodium Chloride) 100 mls @ 100 mls/hr IVPB DAILY [facility] Last Admin: 10/21/17 10:31 Dose: 100 mls/hr Multivitamins/Vitamin C 10 ml/ (Dextrose/Sodium Chloride) 1,010 mls @ 125 mls/ hr IV DAILY [facility] Oseltamivir Phosphate (Tamiflu Cap) 75 mg PO BID [facility] Stop: 10/25/17 21:46 Last Admin: 10/21/17 18:33 Dose: 75 mg Oxycodone/Acetaminophen (Percocet 5/325 Mg Tab) 1 tab PO Q6H PRN PRN Reason: Back Pain Stop: 10/24/17 11:17 Last Admin: 10/21/17 11:37 Dose: 1 tab Results - Vital Signs Recent Vital Signs: Last Vital Signs Temp 97.6 F 10/21/17 23:19 Pulse 65 10/21/17 23:19 Resp 20 10/21/17 23:19 BP 103/68 10/21/17 23:19 Pulse Ox 95 10/21/17 23:19 - Labs Result Diagrams: 10/20/17 18:18 10/20/17 18:18 Labs: Laboratory Results - last 24 hr 10/21/17 10/22/17 20:01 04:58 PT 30.4 H* INR 2.6 Urine HCG, Qual Negative
[2017-10-22 09:00] LABS: INR 3.1
[2017-10-22] MEDS ORDERED: Iohexol 240 (50 ml) PO ONE (09:00)
[2017-10-22 09:27] LABS: FREE T4 0.98 ng/dL (0.78-2.19)
[2017-10-22] MEDS ORDERED: Multivitamin (MVI) 10 ML in Dextrose 5%/0.45% NS 1,000 ML IV SCH (10:00)
[2017-10-22 10:17] LABS: FREE T4 1.04 ng/dL (0.78-2.19)
[2017-10-22 10:39] LABS: FOLATE > 20.0 ng/mL
[2017-10-22] MEDS ORDERED: Iodixanol 320 MG/ML 100 ML BOTTLE IV ONE (11:02)
[2017-10-22 11:12] LABS: PROTHROMBIN TIME 36.7 SECONDS (9.7-12.2)
[2017-10-22] MEDS ORDERED: Gadodiamide 287 MG/ML VIAL (15ML) IV ONE (11:27)
--- NOTE | 2017-10-22 12:10 | CON ---
DATE: 10/22/2017 ATTENDING PHYSICIAN: Sunil Montano MD. LOCATION: The patient's room number 568, bed A. CHIEF COMPLAINT: Left-sided leg pain. The patient was admitted with history of fever, had been diagnosed acute flu. She has been presenting with subacute process of worsening her left leg pain. From neurological point of view, I was called in to evaluate her for further management. HISTORY OF PRESENT ILLNESS: Ms. Michelle Ruiz is a 52-year-old right-handed female, presenting with about 1-month history of progressive lower back pain, radiating down to her leg. She was seen by me a few weeks ago and did have electrodiagnostic studies as per the patient, has been diagnosed neuropathy. At this point, she could not recall. I told her radiculopathy as well or not. I could not recall the further workup which I have done while she was seen by as outpatient. At present, she is complaining of worsening her lower back pain ever since last Thursday. Pain is 10/10 in pain scale. Radiating from her left side of the buttocks, radiating down to her heel associating with numbness of dorsum of her foot, mainly on the lateral part of her foot and inability to walk and put her weight on her left leg. She also admitted left side is weaker than her right side. She denies neck pain. She denies headaches. She denies visual or bulbar dysfunction. No history of fall. No history of involuntary movement or episodic weakness of her leg. PAST MEDICAL HISTORY: HIV has been diagnosed many years ago, has been treated with antiviral drug. History of pulmonary embolism, has been on Coumadin. Distal sensorimotor neuropathy. PERSONAL HISTORY: Denies smoking or alcohol use. ALLERGIES: NO KNOWN ALLERGIES. REVIEW OF SYSTEMS: Twelve-point systems had been reviewed. From neuro, progressive lower back pain. MEDICATIONS: Ceftriaxone, vitamin, Pepcid, Tamiflu and Coumadin. PHYSICAL EXAMINATION: VITAL SIGNS: Blood pressure 103/68, mean arterial pressure of 79, respiratory rate 16, temperature afebrile. NECK: Supple. No carotid bruit. HEART: Sounds are regular. CHEST: Fair air entry. EXTREMITIES: No edema in legs. NEUROLOGICAL: Mental status examination: She is awake, alert, oriented to person, place and time. Speech is clear. Naming, repetition, fluency, comprehension all within normal. Cranial nerve examination: Visual field intact. Pupils react to light. Extraocular movement normal. No nystagmus. No facial sensory deficit. No facial asymmetry. Hearing is normal. Tongue is midline. Good gag. Motor examination: Outstretched hand with eyes closed. No drift noted. Power is symmetric on either side. Lower extremity examination: She could not be able to lift her left leg due to the pain. Deep tendon reflexes, biceps, brachialis, triceps 2+, both knees are 2+, both ankles are 1+. Plantars are downgoing. Sensory examination: Significant sensory deficit over left L5 and S1 dermatome. Mildly decreased vibration sense noted distally in both lower extremities. Straight leg raising test shows positive at 15 to 30 degrees on her left side. Gait is deferred at this time. Coordination: Finger-nose test is intact. WORKUP: CT of the chest shows lymphadenopathy at the mediastinal region. There is no pneumothorax. Atelectasis at lingula and right middle lobe. The patient also had minimal scarring of the lung base. Blood workup: WBC 5.2, hemoglobin 13.6, hematocrit 41.3, platelet 207. PT 30.4, INR 2.6, PTT 45. Sodium 131, potassium 3.7, chloride 98, bicarbonate 25, GFR more than 60, calcium 8.7. Urinalysis normal. Serology: Influenza A positive. CONCLUSION: Ms. Michelle Ruiz has been presenting with as per neurological examination has subacute process of left lumbosacral radiculitis affecting S1 root versus lower lumbosacral plexitis. This is probably infectious versus inflammatory or structural cause such as herniated disk with neural foraminal stenosis. From inflammatory or infectious process, the patient needs further workup. RECOMMENDATION: 1. MRI of the lumbosacral spine with and without Gadolinium to rule out any structural causes. 2. Gabapentin can be given and the dose can be titrated as she can tolerate. 3. No narcotics because she had a side effect with the medication last night. 4. The patient can move her legs. The patient can get out of the bed as she can tolerate and physical therapy should be initiated while she is in the hospital. 5. The patient's condition had been well discussed with the patient. The patient will be followed closely with you. Miki Washington MD
[2017-10-22] MEDS: Multivitamin (MVI) 10 ML in Dextrose 5%/0.45% NS 1,000 ML IV SCH (13:32)
--- NOTE | 2017-10-22 16:31 | CT ---
PROCEDURE: CT scan abdomen and pelvis dated 10/22/2017. . HISTORY: Rule out intra-abdominal adenopathy. COMPARISON: Comparison made with CT a of the chest 10/20/2017 which imaged the upper abdomen. TECHNIQUE: Contiguous axial images of the abdomen and pelvis performed following oral and intravenous injection of approximately 80 cc Visipaque 320 contrast material. Sagittal and coronal reformats provided. Radiation dose: Total exam DLP = 555.79 mGy-cm. This CT exam was performed using one or more of the following dose reduction techniques: Automated exposure control, adjustment of the mA and/or kV according to patient size, and/or use of iterative reconstruction technique. FINDINGS: LOWER THORAX: Minor scarring/atelectasis left lingular region. No effusion or basilar pneumothorax. Heart size is within range of normal. No significant pericardial effusion. There is a small hiatal hernia with slight wall thickening of the distal esophagus that could be due to protrusion of gastric mucosa. Possibility of esophagitis or other intrinsic wall wall lesion not excluded. LIVER: Liver exhibits normal size. No hepatic masses or collections. Portal and splenic veins are opacified. Minimal fatty hepatic infiltration. GALLBLADDER AND BILE DUCTS: Cholelithiasis. PANCREAS: Pancreas is somewhat atrophic and fatty replaced. No obvious pancreatic masses or collections. SPLEEN: Spleen exhibits normal size and attenuation pattern. ADRENALS: No adrenal lesions. KIDNEYS AND URETERS: Kidneys demonstrate symmetric nephrograms. No evidence of obstructing nephrolithiasis. BLADDER: Urinary bladder is incompletely distended which may account for slight thick-walled appearance. Cystitis not excluded. REPRODUCTIVE: Unremarkable as visualized APPENDIX: Appendix not seen with any certainty. No obvious inflammatory changes right lower quadrant of the abdomen to suggest acute appendicitis. BOWEL: Unremarkable. No obstruction. No gross mural thickening. PERITONEUM: Unremarkable. No fluid collection. No free air. Small fat containing umbilical hernia. LYMPH NODES: There are a few small nonspecific retroperitoneal lymph nodes. VASCULATURE: Unremarkable. No aortic aneurysm. BONES: Mild multilevel degenerative spondylosis of the lower thoracic and lumbar spine. OTHER FINDINGS: None. IMPRESSION: Cholelithiasis. Minimal diffuse fatty hepatic infiltration. No significant intra abdominal adenopathy. Small hiatal hernia
--- NOTE | 2017-10-22 17:09 | MRI ---
PROCEDURE: MRI lumbar spine dated 10/22/2016 HISTORY: Left-sided S1 radiculopathy. COMPARISON: No prior TECHNIQUE: Multiecho multiplanar sequences were performed through the lumbar spine with and without the use of intravenous contrast. 15 cc Omniscan injected for this procedure. FINDINGS: The current study reveals no acute compression fractures no retropulsed fragments. Vertebral bodies exhibit normal stature. There is slight straightening of the normal lumbar lordosis however vertebral bodies otherwise exhibit normal alignment. Facets normally aligned. There is a large asymmetric (larger on left than right) central and bilateral disc herniation with extension into the proximal inferior margins of the left exit foramen. Some minimal extension into the proximal inferior margin right exit foramen. The changes result in significant bilateral lateral recess and central canal stenosis left greater than right. The facet joints also hypertrophic. The left exit foramen is stenotic with compression of the left-sided L4 foraminal nerve root. Right exit foramen appears adequate. The remaining levels exhibit adequate disc height and hydration. Facet joints are mildly hypertrophic L5-S1 and to a lesser degree L3-L4 and less so the L2-L3 levels. Central canal and exit foramina appear adequate. No enhancing abnormalities. Conus terminates at approximately the lower L1 level. IMPRESSION: Large asymmetric central and bilateral disc herniation that results in fairly significant bilateral lateral recess and central canal stenosis L4-L5 level as described. Though there is also left-sided foraminal stenosis. No acute compression fractures no retropulsed fragments. No enhancing lesions seen.
[2017-10-22] MEDS: GENVOYA PO SCH (18:41)
--- NOTE | 2017-10-22 21:15 | CP.PCM.PN ---
Subjective - Date & Time of Evaluation Date of Evaluation: 10/21/17 Time of Evaluation: 19:30 - Subjective Subjective: INFECTIOUS DISEASE PROGRESS NOTE SRINATH FLOYD MD, FACP BOARD CERTIFIED X3 IN ID 5T 10/21/2017 CHART REVIEWED EXAMINATION NOTED CASE DISCUSSED W/U ON GOING CLINICALLY STILL WITH POOR PO INTAKE REQUIRING IV FLUIDS APPEARS TO BE RESPONDING SOMEWHAT TO COMBINED MEDICATION TREATMENTS SOME NAUSEA FROM PO'S THAT MAKE MATTERS WORSE LUNGS BETTER COR NOTED TEMPS DOWN OBSERVE RECHECK CT OF CHEST AND COMPARE WITH PREVIOUS ISSUES APPRECIATE HEME/ONC AND DR SMITH Objective - Vital Signs/Intake and Output Vital Signs (last 24 hours): Temp Pulse Resp BP Pulse Ox 98.0 F 63 20 111/75 97 10/22/17 16:33 10/22/17 16:33 10/22/17 16:33 10/22/17 16:33 10/22/17 16:33 Intake and Output: 10/22/17 10/23/17 18:59 06:59 Intake Total 950 Balance 950 - Medications Medications: Current Medications Famotidine (Pepcid) 20 mg PO DAILY [facility] Last Admin: 10/22/17 09:19 Dose: 20 mg Gabapentin (Neurontin) 300 mg PO BID [facility] Last Admin: 10/22/17 18:40 Dose: 300 mg Home Med (Patient's Own Medication) 1 tab PO Q24H [facility] Last Admin: 10/22/17 18:41 Dose: 1 tab Ceftriaxone Sodium 1 gm/ (Sodium Chloride) 100 mls @ 100 mls/hr IVPB DAILY [facility] Last Admin: 10/22/17 09:20 Dose: 100 mls/hr Multivitamins/Vitamin C 10 ml/ (Dextrose/Sodium Chloride) 1,010 mls @ 125 mls/ hr IV Q24H [facility] Last Admin: 10/22/17 13:32 Dose: 125 mls/hr Oseltamivir Phosphate (Tamiflu Cap) 75 mg PO BID [facility] Stop: 10/25/17 21:46 Last Admin: 10/22/17 18:40 Dose: 75 mg Oxycodone/Acetaminophen (Percocet 5/325 Mg Tab) 1 tab PO Q6H PRN PRN Reason: Back Pain Stop: 10/24/17 11:17 Last Admin: 10/21/17 11:37 Dose: 1 tab - Labs Labs: 10/20/17 18:18 10/20/17 18:18 PT 36.7 SECONDS (9.7-12.2) H* D 10/22/17 08:47 INR 3.1 10/22/17 08:47 APTT 45 SECONDS (21-34) H 10/20/17 18:18 Assessment and Plan (1) Acute pharyngitis with influenza Status: Acute (2) Bronchopneumonia Status: Suspected (3) Fever and chills Status: Acute (4) Pulmonary emboli Status: Chronic (5) HIV (human immunodeficiency virus infection) Status: Chronic (6) Neuropathy Status: Chronic (7) 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
--- NOTE | 2017-10-22 21:21 | CP.PCM.PN ---
Subjective - Date & Time of Evaluation Date of Evaluation: 10/22/17 Time of Evaluation: 21:17 - Subjective Subjective: INFECTIOUS DISEASE PROGRESS NOTES SRINATH FLOYD MD, FACP 5T 568-A 10/22/2017 CLINICALLY RESPONSIVE TO IV AND PO TREATMENT PROTOCOL TEMPS DOWN AND NON PROSTRATION APPRECIATED THIS EVENING PT IN AND OUT OF ROOM FOR RADIOLOGICAL MANAGEMENT STILL WITH LIMITED PO'S IV FLUIDS CONTINUE LUNGS BETTER COR NOTED ABD SOFT, NO N,V,D EXT STILL WITH NEUR DYSFUNCTION OF HER LEFT LEG REPEAT LABS REVIEW WITH DR MCGINNIS HIS INTERPRETATION OF HER MRI'S, ETC. IF LABS AND CLINICAL CONDITION CONTINUE TO IMPROVE TO CONSIDER HOME THURSDAY. Objective - Vital Signs/Intake and Output Vital Signs (last 24 hours): Temp Pulse Resp BP Pulse Ox 98.0 F 63 20 111/75 97 10/22/17 16:33 10/22/17 16:33 10/22/17 16:33 10/22/17 16:33 10/22/17 16:33 Intake and Output: 10/22/17 10/23/17 18:59 06:59 Intake Total 950 Balance 950 - Medications Medications: Current Medications Famotidine (Pepcid) 20 mg PO DAILY [facility] Last Admin: 10/22/17 09:19 Dose: 20 mg Gabapentin (Neurontin) 300 mg PO BID [facility] Last Admin: 10/22/17 18:40 Dose: 300 mg Home Med (Patient's Own Medication) 1 tab PO Q24H [facility] Last Admin: 10/22/17 18:41 Dose: 1 tab Ceftriaxone Sodium 1 gm/ (Sodium Chloride) 100 mls @ 100 mls/hr IVPB DAILY [facility] Last Admin: 10/22/17 09:20 Dose: 100 mls/hr Multivitamins/Vitamin C 10 ml/ (Dextrose/Sodium Chloride) 1,010 mls @ 125 mls/ hr IV Q24H [facility] Last Admin: 10/22/17 13:32 Dose: 125 mls/hr Oseltamivir Phosphate (Tamiflu Cap) 75 mg PO BID [facility] Stop: 10/25/17 21:46 Last Admin: 10/22/17 18:40 Dose: 75 mg Oxycodone/Acetaminophen (Percocet 5/325 Mg Tab) 1 tab PO Q6H PRN PRN Reason: Back Pain Stop: 10/24/17 11:17 Last Admin: 10/21/17 11:37 Dose: 1 tab - Labs Labs: 10/20/17 18:18 10/20/17 18:18 PT 36.7 SECONDS (9.7-12.2) H* D 10/22/17 08:47 INR 3.1 10/22/17 08:47 APTT 45 SECONDS (21-34) H 10/20/17 18:18 - Constitutional Appears: Non-toxic, No Acute Distress, Chronically Ill - Head Exam Head Exam: NORMAL INSPECTION - Eye Exam Eye Exam: Normal appearance Pupil Exam: NORMAL ACCOMODATION - ENT Exam ENT Exam: Mucous Membranes Moist - Neck Exam Neck Exam: Normal Inspection - Respiratory Exam Respiratory Exam: Decreased Breath Sounds, NORMAL BREATHING PATTERN - Cardiovascular Exam Cardiovascular Exam: REGULAR RHYTHM - Rectal Exam Rectal Exam: Deferred - Back Exam Back Exam: muscle spasm, tenderness. absent: rash noted - Neurological Exam Neurological Exam: Alert, Awake. absent: Normal Gait - Psychiatric Exam Psychiatric exam: Normal Affect, Normal Mood - Skin Skin Exam: Dry, Normal Color, Warm. 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
[2017-10-23] MEDS ORDERED: Promethazine 12.5 mg/10 ml Syrup PO ONE (00:05)
--- NOTE | 2017-10-23 07:33 | PN ---
DATE: 10/23/2017 NEUROLOGICAL PROBLEM: Lumbar radiculopathy, failing with conservative management. PHYSICAL EXAMINATION: VITAL SIGNS: Blood pressure 116/76, mean arterial pressure of 89, respiratory rate 16, temperature afebrile. The patient is still lying with 10/10 pain, which cannot be controlled with current treatment. NEUROLOGIC: Examination consistent with L5 superimposed S1 radiculopathy on her symptomatic side with sensory deficits. The patient did go for MRI of the lumbosacral spine, which was reviewed by me consistent with large asymmetric bilateral disk herniation in L4-L5 level compressing the nerve root on her left more than her right side. RECOMMENDATION: 1. The patient's condition had been well discussed with her options are given with the medical management which has been failing at present and the patient is not a candidate for steroid treatment which is allergic to her. 2. Symptomatic relief with epidural injection, which I am against it and the patient also agreed she does not want to have that epidural injection at present. 3. Surgical options, pros and cons have been discussed with the patient at this point. The patient decided to get a surgical opinion because of her sufferings are extremely getting worse. At this point, I would like to call neurosurgical opinion to see their opinion on her for surgical decompression. The patient has been on Coumadin and medication can be discontinued prior to the surgery and has to be resumed following the surgical approach if the patient goes to the surgery. Rest of the work has been requested, which is unremarkable. The patient's condition will be discussed with Dr. Montano. Miki Washington MD
[2017-10-23 08:35] LABS: MEAN CELL VOLUME 80.8 fL (81.0-99.0); MEAN CORPUSCULAR HEMOGLOBIN 27.3 pg (27.0-31.0); MEAN CORPUSCULAR HGB CONC 33.8 g/dL (33.0-37.0); MEAN PLATELET VOLUME 9.4 fL (7.2-11.7); PLATELET COUNT 244 K/uL (130-400); RBC 4.77 Mil/uL (3.80-5.20); RED CELL DISTRIBUTION WIDTH 13.6 % (11.5-14.5)
[2017-10-23 08:51] LABS: WHITE BLOOD COUNT 10.9 K/uL (4.8-10.8)
[2017-10-23 09:02] LABS: ALB/GLOB RATIO 1.2 (1.0-2.1); ALBUMIN 3.4 g/dL (3.5-5.0); ALT/SGPT 40 U/L (9-52); AST/SGOT 31 U/L (14-36); BLOOD UREA NITROGEN 15 mg/dL (7-17); CALCIUM 8.7 mg/dl (8.6-10.4); GFR AFRICAN-AMERICAN > 60; GFR NON-AFRICAN AMERICAN > 60
[2017-10-23] MEDS: Multivitamin (MVI) 10 ML in Dextrose 5%/0.45% NS 1,000 ML IV SCH (13:00)
--- NOTE | 2017-10-23 18:00 | CP.PCM.PN ---
Subjective - Date & Time of Evaluation Date of Evaluation: 10/23/17 Time of Evaluation: 17:52 - Subjective Subjective: INFECTIOUS DISEASE PROGRESS NOTE SRINATH FLOYD MD, FACP 5T 568-A 10/23/2017 CHART REVIEWED PT EXAMINED CASE DISCUSSED WITH DR MCGINNIS THIS MORNING AT 7:[address] NIRMAL WATERS LATER IN THE MORNING PT'S CONDITION NOTED FOR INCREASED COUGHING AND WHEEZING THIS PM! REVIEWED NEED FOR SHORT COURSE OF STEROIDS ( NOT DECADRON ), WHEN STABLE [place] CONSIDER HOME. WILL NEED TO SEE THE NEUROSX OF CHOICE FOR HER BACK. COUMADIN/LOVENOX TO BE WORKED OUT BETWEEN SX AND HEME. Objective - Vital Signs/Intake and Output Vital Signs (last 24 hours): Temp Pulse Resp BP Pulse Ox 98.1 F 72 20 107/68 95 10/23/17 16:48 10/23/17 16:48 10/23/17 16:48 10/23/17 16:48 10/23/17 16:48 Intake and Output: 10/23/17 10/23/17 06:59 18:59 Intake Total 1360 750 Balance 1360 750 - Medications Medications: Current Medications Famotidine (Pepcid) 20 mg PO DAILY [facility] Last Admin: 10/23/17 09:12 Dose: 20 mg Gabapentin (Neurontin) 400 mg PO TID [facility] Home Med (Patient's Own Medication) 1 tab PO Q24H [facility] Last Admin: 10/22/17 18:41 Dose: 1 tab Ceftriaxone Sodium 1 gm/ (Sodium Chloride) 100 mls @ 100 mls/hr IVPB DAILY [facility] Last Admin: 10/23/17 10:47 Dose: 100 mls/hr Multivitamins/Vitamin C 10 ml/ (Dextrose/Sodium Chloride) 1,010 mls @ 125 mls/ hr IV Q24H [facility] Last Admin: 10/23/17 13:00 Dose: 125 mls/hr Oseltamivir Phosphate (Tamiflu Cap) 75 mg PO BID [facility] Stop: 10/25/17 21:46 Last Admin: 10/23/17 09:12 Dose: 75 mg Oxycodone/Acetaminophen (Percocet 5/325 Mg Tab) 1 tab PO Q6H PRN PRN Reason: Back Pain Stop: 10/24/17 11:17 Last Admin: 10/21/17 11:37 Dose: 1 tab - Labs Labs: 10/23/17 08:26 10/23/17 08:26 PT 36.7 SECONDS (9.7-12.2) H* D 10/22/17 08:47 INR 3.1 10/22/17 08:47 APTT 45 SECONDS (21-34) H 10/20/17 18:18 - Constitutional Appears: Non-toxic, No Acute Distress, Older Than Stated Age, Chronically Ill - Head Exam Head Exam: NORMAL INSPECTION - Eye Exam Eye Exam: Normal appearance - ENT Exam ENT Exam: Mucous Membranes Moist - Neck Exam Neck Exam: Normal Inspection - Respiratory Exam Respiratory Exam: Decreased Breath Sounds, Rhonchi, Wheezes, NORMAL BREATHING PATTERN - Cardiovascular Exam Cardiovascular Exam: REGULAR RHYTHM - GI/Abdominal Exam GI & Abdominal Exam: Soft. absent: Tenderness, Organomegaly, Rebound - Rectal Exam Rectal Exam: Deferred - Extremities Exam Extremities Exam: Normal Capillary Refill. 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
[2017-10-23] MEDS: MethylPREDNISolone 40 mg Vial IVP SCH (18:38)
[2017-10-23] MEDS: GENVOYA PO SCH (18:38)
--- NOTE | 2017-10-23 18:44 | CP.PCM.PN ---
Subjective - Date & Time of Evaluation Date of Evaluation: 10/23/17 Time of Evaluation: 18:38 - Subjective Subjective: The patient is afebrile, feeling somewhat better with pain meds, increased cough , INR ok, no bleeding Objective - Vital Signs/Intake and Output Vital Signs (last 24 hours): Temp Pulse Resp BP Pulse Ox 98.1 F 72 20 107/68 95 10/23/17 16:48 10/23/17 16:48 10/23/17 16:48 10/23/17 16:48 10/23/17 16:48 Intake and Output: 10/23/17 10/23/17 06:59 18:59 Intake Total 1360 750 Balance 1360 750 - Medications Medications: Current Medications Famotidine (Pepcid) 20 mg PO DAILY [facility] Last Admin: 10/23/17 09:12 Dose: 20 mg Gabapentin (Neurontin) 400 mg PO TID [facility] Last Admin: 10/23/17 18:37 Dose: 400 mg Home Med (Patient's Own Medication) 1 tab PO Q24H [facility] Last Admin: 10/23/17 18:38 Dose: 1 tab Ceftriaxone Sodium 1 gm/ (Sodium Chloride) 100 mls @ 100 mls/hr IVPB DAILY [facility] Last Admin: 10/23/17 10:47 Dose: 100 mls/hr Multivitamins/Vitamin C 10 ml/ (Dextrose/Sodium Chloride) 1,010 mls @ 125 mls/ hr IV Q24H [facility] Last Admin: 10/23/17 13:00 Dose: 125 mls/hr Methylprednisolone (Solu-Medrol) 40 mg IVP Q8H [facility] Last Admin: 10/23/17 18:38 Dose: 40 mg Oseltamivir Phosphate (Tamiflu Cap) 75 mg PO BID [facility] Stop: 10/25/17 21:46 Last Admin: 10/23/17 18:38 Dose: 75 mg Oxycodone/Acetaminophen (Percocet 5/325 Mg Tab) 1 tab PO Q6H PRN PRN Reason: Back Pain Stop: 10/24/17 11:17 Last Admin: 10/21/17 11:37 Dose: 1 tab - Labs Labs: 10/23/17 08:26 10/23/17 08:26 PT 36.7 SECONDS (9.7-12.2) H* D 10/22/17 08:47 INR 3.1 10/22/17 08:47 APTT 45 SECONDS (21-34) H 10/20/17 18:18 Assessment and Plan (1) Pulmonary emboli Assessment & Plan: Pulmonary embolus in 07/14, on warfarin, new viral fever and cough with L5 radiculopathy. The patient will get a surgical opinion as an out patient, if she decide to get surgery, will need to be off Warfarin for 5 days preop and covered with LMWH, will continue at least for 6 weeks postop. Will check INR prior to discharge home. Status: Chronic
--- NOTE | 2017-10-23 22:44 | CP.PCM.PN ---
Subjective - Date & Time of Evaluation Date of Evaluation: 10/22/17 Time of Evaluation: 22:43 - Subjective Subjective: Patient is currently doing well. Cough noted. Denies any chest pain. No fever, abdominal pain is negative. Patient underwent MRI of the lumbosacral spine. Also she had abdominal CAT scan. The results reviewed with the patient. Otherwise patient is doing well. Continue the current IV fluid the hydration and the treatment. Possible discharge plan in 2 days Objective - Vital Signs/Intake and Output Vital Signs (last 24 hours): Temp Pulse Resp BP Pulse Ox 98.1 F 72 20 107/68 95 10/23/17 16:48 10/23/17 16:48 10/23/17 16:48 10/23/17 16:48 10/23/17 16:48 Intake and Output: 10/23/17 10/24/17 18:59 06:59 Intake Total 750 Balance 750 - Medications Medications: Current Medications Famotidine (Pepcid) 20 mg PO DAILY [facility] Last Admin: 10/23/17 09:12 Dose: 20 mg Gabapentin (Neurontin) 400 mg PO TID [facility] Last Admin: 10/23/17 18:37 Dose: 400 mg Home Med (Patient's Own Medication) 1 tab PO Q24H [facility] Last Admin: 10/23/17 18:38 Dose: 1 tab Ceftriaxone Sodium 1 gm/ (Sodium Chloride) 100 mls @ 100 mls/hr IVPB DAILY [facility] Last Admin: 10/23/17 10:47 Dose: 100 mls/hr Multivitamins/Vitamin C 10 ml/ (Dextrose/Sodium Chloride) 1,010 mls @ 125 mls/ hr IV Q24H [facility] Last Admin: 10/23/17 13:00 Dose: 125 mls/hr Methylprednisolone (Solu-Medrol) 40 mg IVP Q8H [facility] Last Admin: 10/23/17 18:38 Dose: 40 mg Oseltamivir Phosphate (Tamiflu Cap) 75 mg PO BID [facility] Stop: 10/25/17 21:46 Last Admin: 10/23/17 18:38 Dose: 75 mg Oxycodone/Acetaminophen (Percocet 5/325 Mg Tab) 1 tab PO Q6H PRN PRN Reason: Back Pain Stop: 10/24/17 11:17 Last Admin: 10/21/17 11:37 Dose: 1 tab - Labs Labs: 10/23/17 08:26 10/23/17 08:26 PT 36.7 SECONDS (9.7-12.2) H* D 10/22/17 08:47 INR 3.1 10/22/17 08:47 APTT 45 SECONDS (21-34) H 10/20/17 18:18
--- NOTE | 2017-10-23 22:46 | CP.PCM.PN ---
Subjective - Date & Time of Evaluation Date of Evaluation: 10/23/17 Time of Evaluation: 22:45 - Subjective Subjective: Patient is morning was doing well. She did not have any major cough or a symptoms of shortness of breath at the time. But patient is still having pain in the lower back and left leg pain upon walking. Patient was seen by neurologist. The findings MRI was discussed with the patient. The treatment choices was given to the patient. I also reviewed the patient's a prior CAT scan which was done in June 2017 at [facility]. There was subsegmental pulmonary embolism bilaterally in the lower lung temple. Currently patient is on Coumadin. Vital signs reviewed. Clinical examination is unremarkable. Will continue to monitor the patient and will follow the patient. Possible discharge plan in the morning. If clinically okay Objective - Vital Signs/Intake and Output Vital Signs (last 24 hours): Temp Pulse Resp BP Pulse Ox 98.1 F 72 20 107/68 95 10/23/17 16:48 10/23/17 16:48 10/23/17 16:48 10/23/17 16:48 10/23/17 16:48 Intake and Output: 10/23/17 10/24/17 18:59 06:59 Intake Total 750 Balance 750 - Medications Medications: Current Medications Famotidine (Pepcid) 20 mg PO DAILY [facility] Last Admin: 10/23/17 09:12 Dose: 20 mg Gabapentin (Neurontin) 400 mg PO TID [facility] Last Admin: 10/23/17 18:37 Dose: 400 mg Home Med (Patient's Own Medication) 1 tab PO Q24H [facility] Last Admin: 10/23/17 18:38 Dose: 1 tab Ceftriaxone Sodium 1 gm/ (Sodium Chloride) 100 mls @ 100 mls/hr IVPB DAILY [facility] Last Admin: 10/23/17 10:47 Dose: 100 mls/hr Multivitamins/Vitamin C 10 ml/ (Dextrose/Sodium Chloride) 1,010 mls @ 125 mls/ hr IV Q24H [facility] Last Admin: 10/23/17 13:00 Dose: 125 mls/hr Methylprednisolone (Solu-Medrol) 40 mg IVP Q8H [facility] Last Admin: 10/23/17 18:38 Dose: 40 mg Oseltamivir Phosphate (Tamiflu Cap) 75 mg PO BID [facility] Stop: 10/25/17 21:46 Last Admin: 10/23/17 18:38 Dose: 75 mg Oxycodone/Acetaminophen (Percocet 5/325 Mg Tab) 1 tab PO Q6H PRN PRN Reason: Back Pain Stop: 10/24/17 11:17 Last Admin: 10/21/17 11:37 Dose: 1 tab - Labs Labs: 10/23/17 08:26 10/23/17 08:26 PT 36.7 SECONDS (9.7-12.2) H* D 10/22/17 08:47 INR 3.1 10/22/17 08:47 APTT 45 SECONDS (21-34) H 10/20/17 18:18
[2017-10-24] MEDS ORDERED: Promethazine 12.5 mg/10 ml Syrup PO ONE (00:43)
[2017-10-24] MEDS: MethylPREDNISolone 40 mg Vial IVP SCH ×3 (01:55→18:10)
[2017-10-24 08:45] LABS: BASO % 0.1 % (0.0-2.0); HEMOGLOBIN 13.4 g/dL (11.0-16.0); LYMPH # 1.1 K/uL (1.0-4.3); LYMPH % 14.6 % (20.0-40.0); MEAN CELL VOLUME 80.5 fL (81.0-99.0); MEAN CORPUSCULAR HEMOGLOBIN 27.1 pg (27.0-31.0); MEAN CORPUSCULAR HGB CONC 33.7 g/dL (33.0-37.0); MEAN PLATELET VOLUME 9.6 fL (7.2-11.7); MONO # 0.2 K/uL (0.0-0.8); MONO % 2.6 % (0.0-10.0); NEUT % 82.7 % (50.0-75.0); RBC 4.93 Mil/uL (3.80-5.20); RED CELL DISTRIBUTION WIDTH 13.8 % (11.5-14.5); WHITE BLOOD COUNT 7.3 K/uL (4.8-10.8)
[2017-10-24 09:13] LABS: ALB/GLOB RATIO 1.2 (1.0-2.1); ALBUMIN 3.7 g/dL (3.5-5.0); ALT/SGPT 41 U/L (9-52); AST/SGOT 35 U/L (14-36); BLOOD UREA NITROGEN 20 mg/dL (7-17); CALCIUM 8.9 mg/dl (8.6-10.4); GFR AFRICAN-AMERICAN > 60; GFR NON-AFRICAN AMERICAN > 60
--- NOTE | 2017-10-24 13:24 | PN ---
DATE: 10/24/2017 TIME OF EVALUATION: 11:45 a.m. NEUROLOGICAL PROBLEM: Left lumbosacral radiculopathy with severe herniated disk disease. PHYSICAL EXAMINATION: VITAL SIGNS: Blood pressure 116/69, mean arterial pressure of 84, respiratory rate 16, temperature 97.6. ASSESSMENT AND PLAN: The patient comfortably lying down in the bed. She could be able to tolerate the pain on titrating her medication. The patient was examined, which is unchanged compared with my previous examination. Options have been discussed about the management of her herniated disk, had been discussed again. The patient inclined to follow up my advice. When medically stable, for her pulmonary embolism, the patient can be scheduled to have a surgical consultation, which can be done as an outpatient. In the meantime, I forced her and urged her to lose her weight. By losing her weight, she may not need her surgery. She understand her issues. She would be following my advice. If medically stable, the patient can be discharged and advised to see me as an outpatient. Miki Washington MD
[2017-10-24] MEDS: Multivitamin (MVI) 10 ML in Dextrose 5%/0.45% NS 1,000 ML IV SCH (14:32)
--- NOTE | 2017-10-24 17:44 | CP.PCM.PN ---
Subjective - Date & Time of Evaluation Date of Evaluation: 10/24/17 Time of Evaluation: 17:40 - Subjective Subjective: INFECTIOUS DISEASE PROGRESS NOTE 5T 568-A SRINATH FLOYD MD [facility] 10/24/2017 CHART REVIEWED PT EXAMINED CASE DISCUSSED CLINICALLY BETER EACH DAY, COUGH BETTER WITH STEROIDS NO BLEEDING, HER INR IS STABLE FOR HER HER REPEAT INFLUENZA TESTED IS NOW NEGATIVE, ERGO D/C DROPLET ISOLATION LUNGS STILL WITH SOME RHONCHI COR RR ABD SOFT D/C IV FLUIDS D/C IV ANTIBIOTICS OBSERVE, IF STABLE CONSIDER HOME TOMORROW PM SWITCH TO PHENERGAN WITH CODEINE Objective - Vital Signs/Intake and Output Vital Signs (last 24 hours): Temp Pulse Resp BP Pulse Ox 98.4 F 56 L 20 112/65 96 10/24/17 16:00 10/24/17 16:00 10/24/17 16:00 10/24/17 16:00 10/24/17 16:00 - Medications Medications: Current Medications Famotidine (Pepcid) 20 mg PO DAILY [facility] Last Admin: 10/24/17 10:07 Dose: 20 mg Gabapentin (Neurontin) 400 mg PO TID [facility] Last Admin: 10/24/17 13:33 Dose: 400 mg Home Med (Patient's Own Medication) 1 tab PO Q24H [facility] Last Admin: 10/23/17 18:38 Dose: 1 tab Ceftriaxone Sodium 1 gm/ (Sodium Chloride) 100 mls @ 100 mls/hr IVPB DAILY [facility] Last Admin: 10/24/17 10:07 Dose: 100 mls/hr Multivitamins/Vitamin C 10 ml/ (Dextrose/Sodium Chloride) 1,010 mls @ 125 mls/ hr IV Q24H [facility] Last Admin: 10/24/17 14:32 Dose: 125 mls/hr Methylprednisolone (Solu-Medrol) 40 mg IVP Q8H [facility] Last Admin: 10/24/17 10:07 Dose: 40 mg Oseltamivir Phosphate (Tamiflu Cap) 75 mg PO BID [facility] Stop: 10/25/17 21:46 Last Admin: 10/24/17 10:03 Dose: 75 mg - Labs Labs: 10/24/17 08:37 10/24/17 08:37 PT 36.7 SECONDS (9.7-12.2) H* D 10/22/17 08:47 INR 3.1 10/22/17 08:47 APTT 45 SECONDS (21-34) H 10/20/17 18:18 - Constitutional Appears: Non-toxic, No Acute Distress - Head Exam Head Exam: NORMAL INSPECTION - Eye Exam Eye Exam: Normal appearance - ENT Exam ENT Exam: Mucous Membranes Moist - Neck Exam Neck Exam: Normal Inspection - Respiratory Exam Respiratory Exam: Rhonchi, NORMAL BREATHING PATTERN - Cardiovascular Exam Cardiovascular Exam: REGULAR RHYTHM - GI/Abdominal Exam GI & Abdominal Exam: Soft, Normal Bowel Sounds. absent: Tenderness - Rectal Exam Rectal Exam: Deferred - Back Exam Back Exam: muscle spasm - Neurological Exam Neurological Exam: Alert, Awake - Psychiatric Exam Psychiatric exam: Anxious, Normal Affect, Normal Mood - Skin Skin Exam: Warm Assessment and Plan (1) Acute pharyngitis with influenza Status: Resolved (2) Bronchopneumonia Status: Suspected (3) Fever and chills Status: Resolved (4) Pulmonary emboli Status: Chronic (5) HIV (human immunodeficiency virus infection) Status: Chronic (6) Neuropathy Status: Chronic (7) Pulmonary hypertension associated with hematologic disorder Status: Suspected (8) Debilitated patient Status: Acute (9) Wheezing on auscultation Status: Acute
[2017-10-24] MEDS: GENVOYA PO SCH (18:10)
[2017-10-24] MEDS: Promethazine/Cod 6.25mg-10mg/5ml Syr UD PO PRN (21:52)
[2017-10-24 23:15] VITALS: PULSE 58; O2SAT 95
[2017-10-25] MEDS: MethylPREDNISolone 40 mg Vial IVP SCH ×2 (01:37→09:14)
[2017-10-25] MEDS: Promethazine/Cod 6.25mg-10mg/5ml Syr UD PO PRN (01:39)
[2017-10-25 08:08] LABS: INR 1.6
[2017-10-25 08:28] LABS: PROTHROMBIN TIME 18.7 SECONDS (9.7-12.2)
[2017-10-25 09:08] VITALS: BP 119/61; RESP 20; TEMP 97.8
--- NOTE | 2017-10-25 14:50 | CP.PCM.PN ---
Subjective - Date & Time of Evaluation Date of Evaluation: 10/24/17 Time of Evaluation: 14:50 - Subjective Subjective: Patient is still having symptoms of lower back pain, and left lower extent medial pain. Cough is better. He denies any chest pain. No shortness of breath. Clinical examination is unremarkable. Will continue the current treatment. Patient possibly will be discharged tomorrow home. Patient is currently having increasing pain in the lower back causing the trouble of severe sciatica. Objective - Vital Signs/Intake and Output Vital Signs (last 24 hours): Temp Pulse Resp BP Pulse Ox 97.8 F 58 L 20 119/61 95 10/25/17 09:07 10/25/17 09:07 10/25/17 09:07 10/25/17 09:07 10/25/17 09:07 Intake and Output: 10/25/17 10/25/17 06:59 18:59 Intake Total 500 Balance 500 - Medications Medications: Current Medications Famotidine (Pepcid) 20 mg PO DAILY [facility] Last Admin: 10/25/17 09:14 Dose: 20 mg Gabapentin (Neurontin) 400 mg PO TID [facility] Last Admin: 10/25/17 13:25 Dose: 400 mg Home Med (Patient's Own Medication) 1 tab PO Q24H [facility] Last Admin: 10/24/17 18:10 Dose: 1 tab Methylprednisolone (Solu-Medrol) 40 mg IVP Q8H [facility] Last Admin: 10/25/17 09:14 Dose: 40 mg Oseltamivir Phosphate (Tamiflu Cap) 75 mg PO BID [facility] Stop: 10/25/17 21:46 Last Admin: 10/25/17 09:14 Dose: 75 mg Promethazine HCl/Codeine (Phenergan/Codeine Oral Syrup) 5 ml PO Q4 PRN PRN Reason: Cough and congestion Last Admin: 10/25/17 01:39 Dose: 5 ml - Labs Labs: 10/24/17 08:37 10/24/17 08:37 PT 18.7 SECONDS (9.7-12.2) H D 10/25/17 07:58 INR 1.6 D 10/25/17 07:58 APTT 45 SECONDS (21-34) H 10/20/17 18:18
--- NOTE | 2017-10-25 14:56 | CP.PCM.DIS ---
Provider - Provider Date of Admission: 10/20/17 19:11 Attending physician: Sunil Montano MD Time Spent in preparation of Discharge (in minutes): 45 Hospital Course - Lab Results Lab Results: Most Recent Lab Values WBC 7.3 K/uL (4.8-10.8) 10/24/17 08:37 RBC 4.93 Mil/uL (3.80-5.20) 10/24/17 08:37 Hgb 13.4 g/dL (11.0-16.0) 10/24/17 08:37 Hct 39.7 % (34.0-47.0) 10/24/17 08:37 MCV 80.5 fL (81.0-99.0) L 10/24/17 08:37 MCH 27.1 pg (27.0-31.0) 10/24/17 08:37 MCHC 33.7 g/dL (33.0-37.0) 10/24/17 08:37 RDW 13.8 % (11.5-14.5) 10/24/17 08:37 Plt Count 240 K/uL (130-400) 10/24/17 08:37 MPV 9.6 fL (7.2-11.7) 10/24/17 08:37 Neut % (Auto) 82.7 % (50.0-75.0) H 10/24/17 08:37 Lymph % (Auto) 14.6 % (20.0-40.0) L 10/24/17 08:37 [place] % (Auto) 2.6 % (0.0-10.0) 10/24/17 08:37 Eos % (Auto) 0.0 % (0.0-4.0) 10/24/17 08:37 Baso % (Auto) 0.1 % (0.0-2.0) 10/24/17 08:37 Neut # 6.0 K/uL (1.8-7.0) 10/24/17 08:37 Lymph # 1.1 K/uL (1.0-4.3) 10/24/17 08:37 [place] # 0.2 K/uL (0.0-0.8) 10/24/17 08:37 Eos # 0.0 K/uL (0.0-0.7) 10/24/17 08:37 Baso # 0.0 K/uL (0.0-0.2) 10/24/17 08:37 ESR 13 mm/hr (0-20) 10/22/17 09:03 PT 18.7 SECONDS (9.7-12.2) H D 10/25/17 07:58 INR 1.6 D 10/25/17 07:58 APTT 45 SECONDS (21-34) H 10/20/17 18:18 D-Dimer, Quantitative < 200 ng/mlDDU (0-243) 10/20/17 18:18 Sodium 134 mmol/L (132-148) 10/24/17 08:37 Potassium 4.2 mmol/L (3.6-5.2) 10/24/17 08:37 Chloride 99 mmol/L (98-107) 10/24/17 08:37 Carbon Dioxide 28 mmol/L (22-30) 10/24/17 08:37 Anion Gap 11 (10-20) 10/24/17 08:37 BUN 20 mg/dL (7-17) H 10/24/17 08:37 Creatinine 0.6 mg/dL (0.7-1.2) L 10/24/17 08:37 Est GFR ( Amer) > 60 10/24/17 08:37 Est GFR (Non-Af Amer) > 60 10/24/17 08:37 Random Glucose 122 mg/dL (65-105) H 10/24/17 08:37 Hemoglobin A1c 6.0 % (4.2-6.5) 10/21/17 08:47 Calcium 8.9 mg/dl (8.6-10.4) 10/24/17 08:37 Total Bilirubin 0.3 mg/dL (0.2-1.3) 10/24/17 08:37 AST 35 U/L (14-36) 10/24/17 08:37 ALT 41 U/L (9-52) 10/24/17 08:37 Alkaline Phosphatase 66 U/L (38-126) 10/24/17 08:37 Lactate Dehydrogenase 390 U/L (313-618) 10/22/17 08:47 Troponin I < 0.0120 ng/mL (0.00-0.120) 10/20/17 18:18 C-React Prot High Sens > 15.00 mg/L (1.00-3.00) H 10/22/17 09:13 Total Protein 6.7 g/dL (6.3-8.3) 10/24/17 08:37 Albumin 3.7 g/dL (3.5-5.0) 10/24/17 08:37 Globulin 3.0 gm/dL (2.2-3.9) 10/24/17 08:37 Albumin/Globulin Ratio 1.2 (1.0-2.1) 10/24/17 08:37 Angiotensin Convert Enz 26 U/L (9-67) 10/22/17 13:15 Vitamin B12 748 pg/mL (239-931) 10/22/17 09:03 Folate > 20.0 ng/mL 10/22/17 09:03 Free T4 1.04 ng/dL (0.78-2.19) 10/22/17 09:13 TSH 3rd Generation 0.08 mIU/L (0.46-4.68) L 10/22/17 09:13 Urine Color Yellow (YELLOW) 10/20/17 21:03 Urine Clarity Clear (Clear) 10/20/17 21:03 Urine pH 6.0 (5.0-8.0) 10/20/17 21:03 Ur Specific [place] 1.011 (1.003-1.030) 10/20/17 21:03 Urine Protein Negative mg/dL (NEGATIVE) 10/20/17 21:03 Urine Glucose (UA) Normal mg/dL (Normal) 10/20/17 21: Urine Ketones Trace mg/dL (NEGATIVE) 10/20/17 21:03 Urine Blood Negative (NEGATIVE) 10/20/17 21:03 Urine Nitrate Negative (NEGATIVE) 10/20/17 21:03 Urine Bilirubin Negative (NEGATIVE) 10/20/17 21:03 Urine Urobilinogen Normal mg/dL (0.2-1.0) 10/20/17 21:03 Ur Leukocyte Esterase Neg Brenna/uL (Negative) 10/20/17 21:03 Urine WBC (Auto) < 1 /hpf (0-5) 10/20/17 21:03 Urine RBC (Auto) 3 /hpf (0-3) 10/20/17 21:03 Ur Squamous Epith Cells 1 /hpf (0-5) 10/20/17 21:03 Urine Bacteria Rare (<OCC) 10/20/17 21:03 Urine HCG, Qual Negative (NEGATIVE) 10/22/17 04:58 Influenza Typ A,B (EIA) Negative for flu a/b (NEGATIVE) 10/23/17 21:02 - Hospital Course Hospital Course: Chief complaint: Cough and body pain History of present illness: 52-year-old female with a history of HIV, AIDS, normal CD4 count, history of recent DVT, pulmonary embolism, on Coumadin. Also patient has a bilateral neuropathy and lipodystrophy. Patient is being followed up by a infectious disease specialist for HIV. Patient came to the emergency room with a high fever, cough, chills, and also progressively worsening pain. She was also having increasing pain over the left leg, and also in the lower back, especially on the left side, unable to move, social to some weakness. She was also complaining of headache, muscle pain. Nausea noted, but no vomiting. Denies any diarrhea. No skin rash noted. Past medical history: HIV, back pain, probably embolism, history of DVT. 3 months ago while she was trying to help her mother, and they're trying to lift her up, she felt suddenly pain over the left hip, and also in the left thigh region, since then she was not able to walk better, and worsening pain noted. She was seen by orthopedic surgeon, and also had injection Decadron, and following that she had a complication with allergic reaction. Patient has a significant allergic to certain medications including Decadron. Past surgical history: Nonsmoker nonalcoholic But has a history of pulmonary hypertension. Review of system: Currently mild headache noted. Cough and wheezing noted, mucus percussion percent, body pain present, but today is better than yesterday. No vomiting nausea. The leg pain is still persistently noted. On examination: Vital signs are stable, elevated temperature. Irregular heart sound, minimal expiratory wheezing, regular heart sound, abdomen soft, nontender, extremities no pedal edema. Left leg the patient has some weakness in the extensors of the left foot, and also straight leg raising test is positive. Labs reviewed Influenza is positive. Chest x-ray nonspecific. Patient seen by infectious diseases, medication ordered including Tamiflu. Assessment and recommendation: 52-year-old female with a history of pulmonary hypertension, HIV, DVT primary embolism, on Coumadin. On antiretroviral treatment. Normal CD4 count. Patient admitted with acute febrile illness, likely influenza, and associated dehydration. Patient is currently receiving IV fluid, Tamiflu, antibiotic. Follow-up the study for the DVT on the left leg. CT scan of the chest is being ordered. DVT prophylaxis. Will follow the patient. Course in the Hospital: Patient started on Tamiflu. Patient's respiratory status is improving. Cough is improving. Meanwhile the patient underwent MRI of the lower back, showing evidence of large central bilateral disc herniation with bilateral lateral recess and central canal stenosis involving L4-L5 level especially on the left side. And is producing the symptoms in the left leg. Patient was given consultation by the neurologist, and information was given for the surgical option, patient will be considering a surgical consultation as an outpatient. The patient meanwhile will consider continuing the pain medications as needed, also physical therapy. I advised her to take rest at least one week. Assessment: 52-year-old female admitted with acute influenza. Patient has a history of pulmonary embolism, pulmonary hypertension, HIV, DVT. Patient is currently on Coumadin. Patient was hospitalized at [facility] in June 2017 with shortness of breath, at that time patient was diagnosed with primary embolism. Recent studies including CT scan of the chest, and Doppler study negative. The patient had a mediastinal lymph nodes, in the chest, which was not there in. CAT scan 4 months ago. I recommended to follow up to get a CAT scan of the chest in 3-4 months. Meanwhile patient will see neurologist. Neurosurgical evaluation. Pain management. Patient also will be seeing infectious disease for HIV on medications and management. Discharge Exam - Head Exam Head Exam: NORMAL INSPECTION Discharge Plan - Follow Up Plan Condition: GOOD Disposition: HOME/ ROUTINE Instructions: Viral Syndrome (ED), Piriformis Syndrome (ED) Additional Instructions: L Sciatica Leg pain: ice packs to L buttock, nothing hot, 1/2 hour per hour MOtrin/advil/ibuprofen 400-600 mg every 6 hours as needed Viral Syndrome: Continue Dayquil/Nyquil in liberal treatments. Drink plenty of fluids. Follow-up with your PMD or our Clinic as needed. Referrals: Sunil Montano MD [Staff Provider] - Beatriz Rajan MD [Staff Provider] -
[2017-10-25 18:38] LABS: SOURCE: PLASMA
== END 2017-10-25 16:00 | disposition home or self-care (01) | DRG 977 ==
LOC: C.ER 15:46 → C.9E 19:11 → C.5S 22:26
PROVIDERS: ADMIT Internal Medicine Infectious Disease; ATTEND Internal Medicine Infectious Disease
DX: B20 Human immunodeficiency virus [HIV] disease (principal); I26.99 Other pulmonary embolism without acute cor pulmonale; J11.1 Influenza due to unidentified influenza virus with other respiratory manifestations; I27.20 Pulmonary hypertension, unspecified; Z79.01 Long term (current) use of anticoagulants; G62.9 Polyneuropathy, unspecified; E88.1 Lipodystrophy, not elsewhere classified; E86.0 Dehydration; R53.81 Other malaise; M51.16 Intervertebral disc disorders with radiculopathy, lumbar region